=== PATIENT | male | born 1940 | race Hispanic/Latino ===

== ENCOUNTER 2016-12-29 07:50 | Day surgery (SDC) | payer MEDICARE ==
[2016-12-29 08:19] VITALS: BMI 25.4
[2016-12-29] MEDS ORDERED: Lidocaine 1% Inj (20ml) ONE (08:33)
[2016-12-29] MEDS ORDERED: Bupivacaine 0.5% Inj(30mL) ONE (08:33)
[2016-12-29 08:38] VITALS: O2SAT 98
--- NOTE | 2016-12-29 10:51 | PCM.SURG1 ---
Surgeon's Initial Post Op Note - Surgeon's Notes Surgeon: Dr. Stearns Diver Tender: Dr. Mccall Type of Anesthesia: Local Pre-Operative Diagnosis: Left Forehead Skin Lesion Operative Findings: see operative report Post-Operative Diagnosis: Left forehead skin lesion Operation Performed: Excision of 5x3 cm left forehead skin lesion w/ advancement superior skin flap closure Specimen/Specimens Removed: skin lesion Estimated Blood Loss: EBL {In ML}: 10 Blood Products Given: N/A Drains Used: No Drains Date of Surgery/Procedure: 12/29/16 Time of Surgery/Procedure: 10:49
[2016-12-29 10:55] VITALS: RESP 20; TEMP 98.1
[2016-12-29 11:08] VITALS: BP 178/78; PULSE 47
--- NOTE | 2016-12-29 16:36 | OP ---
PROCEDURE DATE: 12/29/2016 PREOPERATIVE DIAGNOSIS: Left forehead skin lesion. POSTOPERATIVE DIAGNOSIS: Left forehead skin lesion. PROCEDURE PERFORMED: Excision of the 5 x 3 cm left forehead lesion with advancement flap closure of the wound. SURGEON: Dr. Stearns. DIRECTOR OF MEDICAL STAFF SERVICES: Dr. Mccall. ANESTHESIA: Local anesthesia. ESTIMATED BLOOD LOSS: Minimal. SPECIMEN: Left forehead mass. INDICATION: The patient is a 76-year-old male with history of a lesion growing on his left forehead and increasing in size and causing him discomfort. The patient was scheduled for excision of the les ion. DESCRIPTION OF PROCEDURE: The patient was brought to the operating room and placed on the operating table in supine position. The patient was connected to EKG, blood pressure and pulse oximeter monito rs. The patient then underwent local anesthesia after being prepped and draped in usual sterile [facility] ion. First, a timeout procedure took place and everybody in the room agreed as to the patient's iden tity, diagnosis and procedure to be performed. Using a #15 blade, an elliptical incision was made around the lesion with margin of normal skin. The lesion was carefully undermined and excised completely using electrocautery. Once this was sent ai n, I then proceeded raising flaps, both inferiorly and superiorly. The superior flap was about 4-5 c m deep in order to gain adequate length of skin for closure of the 5 x 3 cm defect. Once this was do ne, I then raised the flap superiorly for about 3 cm and proceeded with closure of this wound using 3 -0 Vicryl for the deep dermal stitches and 4-0 Monocryl for skin, a 4-0 Monocryl for subcuticular nikki sure of the skin. A single stitch of 4-0 nylon in a mattress fashion was used in order to control a skin bleeder on the medial aspect of the wound. The patient tolerated the procedure well and there w ere no complications. The patient was awakened and transferred to recovery room for further observat ion. Kieran Stearns MD cc: [id number] TT: 12/29/2016 16:35:20 rn
== END 2016-12-29 11:20 | disposition home or self-care (01) ==
LOC: OPSURG 07:50
PROVIDERS: ATTEND General Practice
DX: C44.319 Basal cell carcinoma of skin of other parts of face (principal); I10 Essential (primary) hypertension; K21.9 Gastro-esophageal reflux disease without esophagitis